=== PATIENT | male | born 1955 | race Caucasian/White ===

== ENCOUNTER 2023-02-09 13:40 | Inpatient (IN) | payer MEDICARE, OTHER ==
[~2023-02-09] VITALS: Ht 193 cm; Wt 70.3 kg
--- NOTE | 2023-02-09 13:45 | NUR ---
PILY DE SANTIAGO FROM [facility] FOR HAVING BLOOD IN URINE, pain 10/10 during urination, on and off. has been seeing his pmd with medication taken
--- NOTE | 2023-02-09 14:00 | NUR ---
constance collected sent to lab
--- NOTE | 2023-02-09 14:05 | NUR ---
kemal collected, sent to lab
--- NOTE | 2023-02-09 14:09 | NUR ---
dr miller at bedside for eval
[2023-02-09 14:19] LABS: BASOPHILS % (AUTO) 0.7 % (0.0-2.0); EOSINOPHILS % (AUTO) 1.3 % (0.0-6.0); HEMATOCRIT 48 % (39-51); HEMOGLOBIN 15.9 g/dL (13.5-17.5); LYMPHOCYTES # (AUTO) 1.2 K/uL (0.8-4.8); LYMPHOCYTES % (AUTO) 17.3 % (20.0-44.0); MEAN CORPUSCULAR HGB CONC 33 g/dl (31.0-36.0); MEAN CORPUSCULAR VOLUME 87 fL (80-96); MONOCYTES # (AUTO) 0.7 K/uL (0.1-1.30); MONOCYTES % (AUTO) 10.6 % (2.0-12.0); NEUTROPHILS # (AUTO) 4.6 K/uL (1.8-8.9); NEUTROPHILS % (AUTO) 70.1 % (43.0-81.0); PLATELET COUNT (AUTO) 180 K/uL (150-450); RED BLOOD CELL COUNT(AUTO) 5.58 MIL/uL (4.5-6.0); WHITE BLOOD COUNT (AUTO) 6.6 K/uL (4.3-11.0)
[2023-02-09 14:31] LABS: CALCIUM, SERUM 9.2 mg/dL (8.5-10.1); CREATININE 0.8 mg/dL (0.6-1.3); POTASSIUM 4.4 mmol/L (3.5-5.1)
[2023-02-09 14:38] LABS: ALBUMIN 3.6 g/dL (3.4-5.0); BILIRUBIN,DIRECT 0.1 mg/dL (0.0-0.2); BILIRUBIN,TOTAL 0.5 mg/dL (0.2-1.0); TOTAL PROTEIN, SERUM 7.1 g/dL (6.4-8.2)
--- NOTE | 2023-02-09 14:57 | NUR ---
MOHINI JETER (BROTHER)
[2023-02-09 15:50] LABS: BILIRUBIN,URINE NEGATIVE (NEGATIVE); COLOR,URINE YELLOW (YELLOW); LEUKOCYTE ESTERASE ,URINE NEGATIVE (NEGATIVE); NITRITE, URINE NEGATIVE (NEGATIVE); PROTEIN,URINE NEGATIVE (NEGATIVE); UGLUCOSE 3+ mg/dL (NEGATIVE); UROBILINOGEN,URINE 0.2 EU/dL (0.2)
[2023-02-09 16:30] LABS: RBC,URINE 51-80 /HPF (0-2)
[2023-02-09] MEDS ORDERED: Z GUARD REMEDY 4 OZ OINT TP PRN (16:30)
[2023-02-09] MEDS ORDERED: ACETAMINOPHEN 325 MG TABLET PO PRN (16:30)
[2023-02-09] MEDS ORDERED: MAG HYDROX/AL HYDROX/SIMETH 30 ML UDC PO PRN (16:30)
[2023-02-09] MEDS ORDERED: ONDANSETRON HCL/PF 4 MG/2 ML VIAL IVP PRN (16:30)
[2023-02-09] MEDS ORDERED: CIPROFLOXACIN IV RTU 400 MG in PREMIX 1 EA IV SCH (16:30)
[2023-02-09] MEDS ORDERED: HYDROCODONE/APAP 5/325MG TABLET PO PRN (16:30)
[2023-02-09 16:31] LABS: BACTERIA,URINE None seen /HPF (None Seen); SQUAMOUS EPITHELIAL CELL,UR 0-2 /HPF (None Seen); WBC,URINE 0-2 /HPF (0-3); YEAST,URINE Few /HPF (None Seen)
--- NOTE | 2023-02-09 16:41 | NUR ---
BED GIVEN 307-1
--- NOTE | 2023-02-09 17:11 | NUR ---
report given to loli olivares for [facility] bed 307-1
--- NOTE | 2023-02-09 17:18 | NUR ---
PT TRANSFERRED TO [facility] SUR[facility] FLOOR IN STABLE CONDITION.
[2023-02-09] MEDS ORDERED: HYDR-500 PO (17:24)
[2023-02-09] MEDS ORDERED: SITA100T PO (17:24)
[2023-02-09] MEDS ORDERED: MULT-213 PO (17:24)
[2023-02-09] MEDS ORDERED: BRIM5DRO5 EACHEYE (17:24)
[2023-02-09] MEDS ORDERED: ACET-868 PO (17:24)
[2023-02-09] MEDS ORDERED: LEVO500T90 PO (17:24)
[2023-02-09] MEDS ORDERED: ATOR10TA PO (17:24)
[2023-02-09] MEDS ORDERED: TAMS-12 PO (17:24)
[2023-02-09] MEDS ORDERED: BLOO-668 IN (17:24)
[2023-02-09] MEDS ORDERED: GLIP5TAB26 PO (17:24)
[2023-02-09] MEDS ORDERED: EMPA25TA PO (17:24)
[2023-02-09] MEDS ORDERED: METF-440 PO (17:24)
[2023-02-09] MEDS ORDERED: INSU100I30 SQ (17:24)
[2023-02-09] MEDS: IV 1/2NS 1000 ML 1,000 ML IV PRN (19:11)
--- NOTE | 2023-02-09 19:27 | NUR ---
RN NOTE; RECEIVED PT IN BED AAOX4 ABLE TO MAKE NEEDS KNOWN,ON RM AIR POLINA WELL SAT 98% NO SOB/DISTRESS NOTED,NO COMPLAIN OF PAIN/DISCOMFORT AT THIS TIME,IV ACCESS ON LAC 20G WITH NS 125ML/HR INFUSING WELL,SAFETY MEASURE IN PLACE,CALL LIGHT WITHIN REACH,WILL CONTINUE TO MONITOR.
[2023-02-09 20:00] VITALS: BP 95/60; TEMP 97.7; O2SAT 99
--- NOTE | 2023-02-09 21:44 | NUR ---
RN NOTE; PATIENT SAID,HE SUPPOSE TO TAKE METFORMIN 1000MG BEFORE BEDTIME,RELAY PT COMPLAINED TO MOIS[facility]S MEAD BERJ.NO METFORMIN IN THE HOSPITAL,IT INTERFERES WITH OTHER INTERVENTION,ONLY SLIDING SCALE.ACHS ACCUCHECKS MILD SLIDING SCALE. CARRIED OUT.
[2023-02-09] MEDS ORDERED: DEXTROSE 50%-WATER 50 ML DISP.SYRIN IV PRN (22:00)
[2023-02-09] MEDS: INSULIN REGULAR, HUMAN 100 UNIT/ML 3 ML VIAL SQ PRN (22:18)
[2023-02-09] MEDS: BLOOD SUGAR DIAGNOSTIC 1 EACH STRIP IN SCH (22:24)
[2023-02-09] MEDS: LEVOFLOXACIN 500 MG /D5W 100ML 500 MG in PREMIX 1 EA IV SCH (22:25)
[2023-02-10] VITALS (7 sets, daily range): BP systolic 83–97; BP diastolic 57–64; TEMP 97.6–98.6; O2SAT 97–98
[2023-02-10] MEDS: IV 1/2NS 1000 ML 1,000 ML IV PRN ×3 (05:12→23:08)
[2023-02-10 05:49] LABS: BASOPHILS % (AUTO) 0.7 % (0.0-2.0); EOSINOPHILS % (AUTO) 1.6 % (0.0-6.0); HEMATOCRIT 46 % (39-51); LYMPHOCYTES # (AUTO) 1.3 K/uL (0.8-4.8); LYMPHOCYTES % (AUTO) 19.8 % (20.0-44.0); MEAN CORPUSCULAR HGB CONC 33 g/dl (31.0-36.0); MEAN CORPUSCULAR VOLUME 86 fL (80-96); MONOCYTES # (AUTO) 0.8 K/uL (0.1-1.30); MONOCYTES % (AUTO) 12.3 % (2.0-12.0); NEUTROPHILS # (AUTO) 4.4 K/uL (1.8-8.9); NEUTROPHILS % (AUTO) 65.6 % (43.0-81.0); PLATELET COUNT (AUTO) 173 K/uL (150-450); RED BLOOD CELL COUNT(AUTO) 5.31 MIL/uL (4.5-6.0); WHITE BLOOD COUNT (AUTO) 6.7 K/uL (4.3-11.0)
[2023-02-10 06:10] LABS: ALBUMIN 3.2 g/dL (3.4-5.0); BILIRUBIN,TOTAL 0.6 mg/dL (0.2-1.0); CALCIUM, SERUM 8.8 mg/dL (8.5-10.1); CREATININE 0.8 mg/dL (0.6-1.3); MAGNESIUM 2.1 mg/dL (1.8-2.4); PHOSPHORUS 3.7 mg/dL (2.5-4.9); TOTAL PROTEIN, SERUM 6.4 g/dL (6.4-8.2)
[2023-02-10] MEDS: BLOOD SUGAR DIAGNOSTIC 1 EACH STRIP IN SCH ×4 (06:22→21:13)
--- NOTE | 2023-02-10 06:23 | NUR ---
RN CLOSING NOTE; PATIENT IN BED AAOX3 ABLE TO MAKE NEEDS KNOWN,ON RM AIR POLINA WELL SAT 99% NO SOB/DISTRESS NOTED,NO COMPLAIN OF PAIN/DISCOMFORT DURING SHIFT,IV ACCESS ON LAC 20G WITH 0.45 NS 125ML/HR INFUSING WELL,DUE MEDS GIVEN ORDER,ALL NEEDS ATTENDED,FC INTACT DRAINING OSCAR URINE,NO ODOR NOTED,URINE OUTPUT 1200ML,SAFETY MEASURE IN PLACE,CALL LIGHT WITHIN REACH,WILL ENDORSED TO NEXT SHIFT.
--- NOTE | 2023-02-10 08:10 | NUR ---
RN OPENING NOTES 307-1 RECEIVED PATIENT RESTFUL IN BED,BREATHING WELL ON ROOM AIR,EVENLY AND UNLABORED. NO SIGNS OF DISCOMFORT/PAIN NOTED NOR VERBILISED.PATIENT IS A&O x4 ,HE IS ALSO ABLE TO MAKE NEEDS KNOWN TO STAFF. PATIENT HAS AN IV ACCESS LFA 20G INTACT,PATENT AND CLEAN;SOLO OF 0.45 NS IN GOOD PROGRESS. HAS A GUTHRIE INSITU AND DRAINING WELL(300ML OUTPUT).SKIN IS INTACT. FALL AND SAFETY MEASURES IN PLACE,BED IN A LOWER POSITION AND LOCKED,CALL LIGHT AND TABLE WITHIN REACH. NO ISSUES RAISED,LEFT COMFARTABLE IN BED.CONTINUES TO MONITOR PATIENT THROUGH OUT SHIFT &HOURLY ROUNDING/PRN
[2023-02-10] MEDS: DOCUSATE SODIUM 100 MG CAPSULE PO SCH ×3 (08:34→16:38)
[2023-02-10] MEDS: INSULIN REGULAR, HUMAN 100 UNIT/ML 3 ML VIAL SQ PRN ×3 (12:19→21:19)
[2023-02-10] MEDS ORDERED: ACETAMINOPHEN 325 MG TABLET PO PRN (17:00)
[2023-02-10] MEDS ORDERED: BLOOD SUGAR DIAGNOSTIC 1 EACH STRIP IN SCH (17:00)
[2023-02-10] MEDS ORDERED: hydrOXYzine PAMOATE 25 MG CAPSULE PO PRN (17:00)
[2023-02-10] MEDS: GLUCERNA SHAKE 237 ML CAN PO SCH (17:00)
[2023-02-10] MEDS: LEVOFLOXACIN 500 MG /D5W 100ML 500 MG in PREMIX 1 EA IV SCH (18:17)
[2023-02-10] MEDS: METFORMIN 500 MG TABLET PO SCH (18:24)
--- NOTE | 2023-02-10 18:30 | NUR ---
RN CLOSING NOTES 3 PATIENT RESTFUL IN BED,BREATHING WELL ON ROOM AIR,EVENLY AND UNLABORED. NO SIGNS OF DISCOMFORT/PAIN NOTED NOR VERBILISED.PATIENT IS A&O x4 ,. PATIENT HAS AN IV ACCESS LFA 20G INTACT,PATENT AND CLEAN;SOLO OF 0.45 NS IN GOOD PROGRESS,LEVO IV ANTIBIOTIC RUNNING TOO. HAS A GUTHRIE INSITU AND DRAINING WELL(500ML OUTPUT).SKIN IS INTACT. FALL AND SAFETY MEASURES IN PLACE,BED IN A LOWER POSITION AND LOCKED,CALL LIGHT AND TABLE WITHIN REACH. NO ISSUES RAISED,LEFT COMFARTABLE IN BED.WILL ENDORSE TO THE WELL POINT PUMPING SUPERVISOR NURSE
[2023-02-10] MEDS: BRIMONIDINE TARTRATE OPHT SOLN 5 ML BOTTLE EACHEYE SCH (21:07)
[2023-02-10] MEDS: INSULIN GLARGINE, 100 UNIT/ML CARTRIDGE SQ SCH (21:22)
[2023-02-10] MEDS: TAMSULOSIN 0.4 MG CAP.SR.24H PO SCH (22:00)
[2023-02-10] MEDS ORDERED: INSULIN GLARGINE,BASAGLAR 100 UNIT/ML INSULN.PEN SQ SCH (22:00)
[2023-02-10] MEDS: ATORVASTATIN 10 MG TABLET PO SCH (23:08)
--- NOTE | 2023-02-11 05:23 | NUR ---
CLOSING NOTES: ALERT AND ORIENTATED X4 TALKS ALOT!! TALKS ABOUT "HOW HE ALMOST " / ABOUT HIS MANY ILLNESSESS / ABOUT WERE HE LIVES AND HOW THEY HAD TO CHANGE HIS ROOM 3 TIMES BECAUSE HE DIDN'T LIKE HIS ROOMMATES. HE DRINKS COPIOUS AMOUNTS H20 THIS 12 HOURS 2500 ML / OUTPUT VIA THE GUTHRIE 4800ML VISTARIL GIVEN FOR HIS C/O ITCHING ON HIS BACK AND EFFECTIVE PATIENT DOES SEEK ATTENTION... WHEN GIVING ATTENTION TO THE PATIENT 2ND BED MR JETER WILL ASK FOR ME TO CHECK HIS GUTHRIE BAG / BRING HIM MORE WATER /OR WILL START TALKING ABOUT HIS ILLNESSESS.
[2023-02-11] MEDS: IV 1/2NS 1000 ML 1,000 ML IV PRN ×3 (05:46→23:43)
[2023-02-11] MEDS: BLOOD SUGAR DIAGNOSTIC 1 EACH STRIP IN SCH ×4 (06:01→22:08)
--- NOTE | 2023-02-11 07:56 | NUR ---
RN OPENING NOTES RECEIVED PATIENT RESTFUL IN BED,BREATHING WELL ON ROOM AIR,EVENLY AND UNLABORED. NO SIGNS OF DISCOMFORT/PAIN NOTED NOR VERBALIZED.PATIENT IS A&O x4 ,HE IS ALSO ABLE TO MAKE NEEDS KNOWN TO STAFF. PATIENT HAS AN IV ACCESS LFA 20G INTACT,PATENT AND CLEAN;SOLO OF 0.45 NS IN GOOD PROGRESS. HAS A GUTHRIE INSITU AND DRAINING WELL(300ML OUTPUT).SKIN IS INTACT. FALL AND SAFETY MEASURES IN PLACE,BED IN A LOWER POSITION AND LOCKED,CALL LIGHT AND TABLE WITHIN REACH. NO ISSUES RAISED,LEFT COMFORTABLE IN BED.CONTINUES TO MONITOR PATIENT THROUGH OUT SHIFT &HOURLY ROUNDING/PRN
[2023-02-11] MEDS: GLUCERNA SHAKE 237 ML CAN PO SCH ×3 (08:25→17:38)
[2023-02-11] MEDS: DOCUSATE SODIUM 100 MG CAPSULE PO SCH ×2 (08:25→17:37)
[2023-02-11] MEDS: METFORMIN 500 MG TABLET PO SCH ×2 (08:25→17:37)
[2023-02-11] MEDS: glipiZIDE XL 2.5 MG TAB.OSM.24 PO SCH (08:25)
[2023-02-11] MEDS: MULTIVIT W/MINERALS 1 TAB TABLET PO SCH (08:25)
[2023-02-11 08:30] VITALS: BP 96/71; TEMP 97.4; O2SAT 97
[2023-02-11] MEDS ORDERED: LEVOFLOXACIN (500MG) 500 MG TABLET PO SCH (09:00)
[2023-02-11] MEDS ORDERED: EMPAGLIFLOZIN 25 MG TABLET PO SCH ×2 (09:00)
[2023-02-11] MEDS ORDERED: Medication Not On Formulary EA (Sitagliptin Phosphate (Januvia) 100 MG) PO SCH (09:00)
[2023-02-11] MEDS: INSULIN REGULAR, HUMAN 100 UNIT/ML 3 ML VIAL SQ PRN ×3 (12:20→21:50)
[2023-02-11 16:00] VITALS: BP 100/62; TEMP 97.4; O2SAT 97
[2023-02-11] MEDS ORDERED: LEVOFLOXACIN (250MG) 250 MG TABLET PO SCH (18:00)
--- NOTE | 2023-02-11 18:25 | NUR ---
MS RN CLOSING NOTES PATIENT RESTFUL IN BED,BREATHING WELL ON ROOM AIR,EVENLY AND UNLABORED. NO SIGNS OF DISCOMFORT/PAIN NOTED NOR VERBILISED.PATIENT IS A&O x4 , PATIENT HAS AN IV ACCESS LFA 20G INTACT,PATENT AND CLEAN;SOLO OF 0.45 NS IN GOOD PROGRESS. HAS A GUTHRIE INSITU AND DRAINING WELL.SKIN IS INTACT. FALL AND SAFETY MEASURES IN PLACE,BED IN A LOWER POSITION AND LOCKED,CALL LIGHT AND TABLE WITHIN REACH. NO ISSUES RAISED,LEFT COMFARTABLE IN BED.WILL ENDORSE TO THE ADMINISTRATIVE PROFESSIONAL NURSE
[2023-02-11 20:00] VITALS: BP 89/54; TEMP 98.2; O2SAT 97
[2023-02-11] MEDS: ATORVASTATIN 10 MG TABLET PO SCH (21:27)
[2023-02-11] MEDS: TAMSULOSIN 0.4 MG CAP.SR.24H PO SCH (21:27)
[2023-02-11] MEDS: BRIMONIDINE TARTRATE OPHT SOLN 5 ML BOTTLE EACHEYE SCH (21:37)
[2023-02-11] MEDS: INSULIN GLARGINE, 100 UNIT/ML CARTRIDGE SQ SCH (21:44)
--- NOTE | 2023-02-11 23:06 | NUR ---
MS MCCALL OPENING NOTES RECEIVED PT IN BED, AWAKE, A/O X4, ABLE TO MAKE NEEDS KNOWN. PT ON ROOM AIR, TOLERATING WELL, DENIES SOB OR AT THIS TIME. IV ACCESS ON LFA 20G, PATENT, INTACT AND INFUSING WELL WITH 0.45 NS AT 125ML/HR. PT WITH FC, DRAINING WELL. PT DENIES PAIN OR ANY DISCOMFORT AT THIS TIME. SAFETY PRECAUTIONS IN PLACED: BED AT LOWEST AND LOCKED POSITION, SIDE RAILS UP X3, CALL LIGHT AND TABLE WITHIN EASY REACH. WILL CONTINUE TO MONITOR PT. Addendum: 02/12/23 at 0323 by ABDULAZIZ MCLEAN RN TIME 1929
--- NOTE | 2023-02-12 04:55 | NUR ---
MS RN NOTE PT COMPLAINS OF 3/10 PAIN/DISCOMFORT AT LEFT ARM. REQUESTED FOR TYELENOL. PRN 650MG TYELENOL GIVEN, PLEASE SEE EMAR. WILL CONTINUE TO MONITOR PT.
[2023-02-12 05:50] LABS: BASOPHILS % (AUTO) 0.8 % (0.0-2.0); EOSINOPHILS % (AUTO) 2.6 % (0.0-6.0); HEMATOCRIT 43 % (39-51); HEMOGLOBIN 14.3 g/dL (13.5-17.5); LYMPHOCYTES # (AUTO) 1.4 K/uL (0.8-4.8); LYMPHOCYTES % (AUTO) 24.7 % (20.0-44.0); MEAN CORPUSCULAR HGB CONC 33 g/dl (31.0-36.0); MEAN CORPUSCULAR VOLUME 85 fL (80-96); MONOCYTES # (AUTO) 0.6 K/uL (0.1-1.30); MONOCYTES % (AUTO) 9.8 % (2.0-12.0); NEUTROPHILS # (AUTO) 3.6 K/uL (1.8-8.9); NEUTROPHILS % (AUTO) 62.1 % (43.0-81.0); PLATELET COUNT (AUTO) 158 K/uL (150-450); RED BLOOD CELL COUNT(AUTO) 5.03 MIL/uL (4.5-6.0); WHITE BLOOD COUNT (AUTO) 5.9 K/uL (4.3-11.0)
[2023-02-12 06:24] LABS: BILIRUBIN,TOTAL 0.6 mg/dL (0.2-1.0); CALCIUM, SERUM 8.6 mg/dL (8.5-10.1); CREATININE 0.7 mg/dL (0.6-1.3); MAGNESIUM 1.9 mg/dL (1.8-2.4); PHOSPHORUS 3.5 mg/dL (2.5-4.9); POTASSIUM 3.8 mmol/L (3.5-5.1)
[2023-02-12] MEDS: INSULIN REGULAR, HUMAN 100 UNIT/ML 3 ML VIAL SQ PRN (06:45)
[2023-02-12] MEDS: BLOOD SUGAR DIAGNOSTIC 1 EACH STRIP IN SCH ×3 (06:45→17:06)
--- NOTE | 2023-02-12 06:46 | NUR ---
MS RN CLOSING NOTES PT IN BED, ASLEEP, EASILY AROUSABLE BY NAME, A/O X4, ABLE TO MAKE NEEDS KNOWN. PT ON ROOM AIR, TOLERATING WELL, DENIES SOB OR AT THIS TIME. IV ACCESS ON LFA 20G, PATENT, INTACT AND INFUSING WELL WITH 0.45 NS AT 125ML/HR. PT WITH FC, DRAINED 2350ML THIS SHIFT. PT IS AMBULATORY BUT NEEDS ASSISTANCE TO BR FOR BM. PT DENIES PAIN OR ANY DISCOMFORT AT THIS TIME. ALL DUE MEDS GIVEN, ALL NEEDS ATTENDED. SAFETY PRECAUTIONS IN PLACED: BED AT LOWEST AND LOCKED POSITION, SIDE RAILS UP X3, CALL LIGHT AND TABLE WITHIN EASY REACH. WILL ENDORSE PT TO NEXT SHIFT NURSE FOR CHRIS.
--- NOTE | 2023-02-12 07:15 | NUR ---
MS RN OPENING NOTES RECEIVED PT IN BED, AWAKE, A/O X4, ABLE TO MAKE NEEDS KNOWN. PT ON ROOM AIR, TOLERATING WELL, DENIES SOB OR AT THIS TIME. IV ACCESS ON LFA 20G, PATENT, INTACT AND INFUSING WELL WITH 0.45 NS AT 125ML/HR. PT WITH FC, DRAINING WELL. PT DENIES PAIN OR ANY DISCOMFORT AT THIS TIME. SAFETY PRECAUTIONS IN PLACED: BED AT LOWEST AND LOCKED POSITION, SIDE RAILS UP X3, CALL LIGHT AND TABLE WITHIN EASY REACH. WILL CONTINUE TO MONITOR PT.
[2023-02-12] MEDS: glipiZIDE XL 2.5 MG TAB.OSM.24 PO SCH (09:00)
[2023-02-12] MEDS: GLUCERNA SHAKE 237 ML CAN PO SCH ×3 (09:03→17:07)
[2023-02-12] MEDS: DOCUSATE SODIUM 100 MG CAPSULE PO SCH ×2 (09:04→17:09)
[2023-02-12] MEDS: IV 1/2NS 1000 ML 1,000 ML IV PRN (09:04)
[2023-02-12] MEDS: METFORMIN 500 MG TABLET PO SCH ×2 (09:04→17:09)
[2023-02-12] MEDS: MULTIVIT W/MINERALS 1 TAB TABLET PO SCH (09:04)
--- NOTE | 2023-02-12 11:20 | NUR ---
MS RN NOTE GUTHRIE CATHETER WAS REMOVED ORDERED. WILL MONITOR FOR URINARY RETENTION.
[2023-02-12] MEDS ORDERED: LEVO250T59 PO (11:24)
--- NOTE | 2023-02-12 12:45 | NUR ---
MS RN NOTE PATIENT ABLE TO VOID USING URINAL. CHARGE NURSE KEI WAS INFORMED AND ONLINE AFFILIATE MARKETING MANAGER.
[2023-02-12] MEDS ORDERED: NITR100C6 PO (14:03)
[2023-02-12 16:06] VITALS: BP 90/60; TEMP 98.8; O2SAT 98
--- NOTE | 2023-02-12 17:25 | NUR ---
MS MANAGER DAIRY NOTES RECEIVED ORDER FOR DISCHARGE. PATIENT IS A/O X 4, ABLE TO MAKE NEEDS KNOWN. STABLE ON ROOM AIR. NO SOB OR S/S OF DISTRESS NOTED. DISCHARGE INSTRUCTIONS GIVEN TO PATIENT, VERBALIZED UNDERSTANDING. ALL BELONGINGS ACCOUNTED FOR, BELONGING SHEET SIGNED. PATIENT DENIES ANY PAIN OR DISCOMFORT AT THIS TIME. IV ACCESS REMOVED, CATHETER TIP INTACT. PRESSURE DRESSING APPLIED. EXITCARE FOLDER GIVEN TO EMT'S. REPORT GIVEN TO [facility] C/O STEFANY CISNEROS. PATIENT LEFT IN STABLE CONDITION VIA [facility] WITH JENNA WALKER EMT'S.
== END 2023-02-12 17:30 | DRG 689 ==
LOC: ER 13:57 → TELE 16:54 → MED 02-10 02:02
PROVIDERS: ADMIT Internal Medicine; ATTEND Nurse Practitioner Acute Care
DX: N30.91 Cystitis, unspecified with hematuria (principal); K85.90 Acute pancreatitis without necrosis or infection, unspecified; E44.0 Moderate protein-calorie malnutrition; R64 Cachexia; Z68.1 Body mass index [BMI] 19.9 or less, adult; E03.9 Hypothyroidism, unspecified; E11.9 Type 2 diabetes mellitus without complications; F32.A Depression, unspecified; I10 Essential (primary) hypertension; Z88.0 Allergy status to penicillin; Z88.2 Allergy status to sulfonamides; N40.1 Benign prostatic hyperplasia with lower urinary tract symptoms; Z79.4 Long term (current) use of insulin; Z79.84 Long term (current) use of oral hypoglycemic drugs; B96.20 Unspecified Escherichia coli [E. coli] as the cause of diseases classified elsewhere
CPT/HCPCS: 36415; 80048-TC; 80053-TC; 80076-TC; 81001; 82962-TC; 83690-TC; 83735-TC; 84100-TC; 85025-TC; 87086-TC; 97116-TC; 97530-TC; A4216; G0378; J0744; J1815; J1956; J3490; Q0177

== ENCOUNTER 2023-02-15 12:00 | Emergency (ER) | payer MEDICARE, OTHER ==
[~2023-02-15] VITALS: Ht 193 cm; Wt 68.0 kg
[~2023-02-15 12:00] MED LIST: ACET-868 PO; ATOR10TA PO; BLOO-668 IN; BRIM5DRO5 EACHEYE; EMPA25TA PO; GLIP5TAB26 PO; HYDR-500 PO; INSU100I30 SQ; LEVO500T90 PO; METF-440 PO; MULT-213 PO; NITR100C6 PO; TAMS-12 PO
--- NOTE | 2023-02-15 12:11 | NUR ---
PATIENT CAME TO EMERGENCY DEPARTMENT WITH COMPLAINTS OF SUPRA PUBIC PAIN.ALERT AND ORIENTED.ON ROOM AIR.PATIENT ATTACHED TO TUBE COREMAKER AND PULSE OXYMETER.CHANGED TO HOSPITAL GOWN AND SAFTY PRECAUTIONS ARE IN PLACE.AWAITING FOR MD FOR EVALUATION.
--- NOTE | 2023-02-15 12:12 | NUR ---
DR LOCKETT AT BED SIDE
--- NOTE | 2023-02-15 13:00 | NUR ---
iv inserted on lt forearm no 20,blood collected and send to lab
--- NOTE | 2023-02-15 13:05 | NUR ---
patient went to radiology
--- NOTE | 2023-02-15 13:06 | NUR ---
urine collected and send to lab
[2023-02-15 13:17] LABS: BASOPHILS # (AUTO) 0.1 K/uL (0.0-0.2); BASOPHILS % (AUTO) 0.8 % (0.0-2.0); EOSINOPHILS % (AUTO) 3.3 % (0.0-6.0); HEMATOCRIT 46 % (39-51); HEMOGLOBIN 15.4 g/dL (13.5-17.5); LYMPHOCYTES # (AUTO) 0.8 K/uL (0.8-4.8); LYMPHOCYTES % (AUTO) 10.1 % (20.0-44.0); MEAN CORPUSCULAR HGB CONC 34 g/dl (31.0-36.0); MEAN CORPUSCULAR VOLUME 85 fL (80-96); MONOCYTES # (AUTO) 0.8 K/uL (0.1-1.30); MONOCYTES % (AUTO) 9.7 % (2.0-12.0); NEUTROPHILS # (AUTO) 6.3 K/uL (1.8-8.9); NEUTROPHILS % (AUTO) 76.1 % (43.0-81.0); PLATELET COUNT (AUTO) 187 K/uL (150-450); RED BLOOD CELL COUNT(AUTO) 5.42 MIL/uL (4.5-6.0); WHITE BLOOD COUNT (AUTO) 8.3 K/uL (4.3-11.0)
[2023-02-15 13:18] LABS: BILIRUBIN,URINE NEGATIVE (NEGATIVE); COLOR,URINE YELLOW (YELLOW); LEUKOCYTE ESTERASE ,URINE NEGATIVE (NEGATIVE); NITRITE, URINE NEGATIVE (NEGATIVE); PH,URINE 6.5 (5.0-8.0); PROTEIN,URINE NEGATIVE (NEGATIVE); UGLUCOSE 3+ mg/dL (NEGATIVE); UROBILINOGEN,URINE 0.2 EU/dL (0.2)
[2023-02-15 13:27] LABS: CALCIUM, SERUM 9.4 mg/dL (8.5-10.1); CREATININE 0.7 mg/dL (0.6-1.3)
[2023-02-15 13:29] LABS: BACTERIA,URINE None seen /HPF (None Seen); SQUAMOUS EPITHELIAL CELL,UR Rare /HPF (None Seen); WBC,URINE 0-2 /HPF (0-3)
[2023-02-15 13:38] LABS: ALBUMIN 3.6 g/dL (3.4-5.0); BILIRUBIN,DIRECT 0.1 mg/dL (0.0-0.2); BILIRUBIN,TOTAL 0.6 mg/dL (0.2-1.0); TOTAL PROTEIN, SERUM 7.2 g/dL (6.4-8.2)
--- NOTE | 2023-02-15 18:10 | NUR ---
ASKED TO PATIENT WHETER HE NEED PAIN MEDICATION ,PATIENT REFUSED PAIN MEDICATION .
--- NOTE | 2023-02-15 19:22 | NUR ---
BED REPORT GIVEN TO SUMEET FOR CHRIS
--- NOTE | 2023-02-15 20:25 | NUR ---
[facility] ETA: 30 MIN
--- NOTE | 2023-02-15 20:48 | NUR ---
REPORT GIVEN TO JING AT [facility].
[2023-02-15] MEDS ORDERED: MORPHINE SULFATE INJ 2 MG/ML DISP.SYRIN ONE (20:50)
--- NOTE | 2023-02-15 20:59 | NUR ---
PT TRANSFERED BACK TO [facility] WITH [facility] TRANSPORT TEAM.
[2023-02-15] MEDS ORDERED: MORPHINE SULFATE INJ 2 MG/ML DISP.SYRIN IV ONE (21:00)
[2023-02-15] MEDS ORDERED: ACETAMINOPHEN ES 500 MG TABLET PO ONE (21:00)
[2023-02-15 21:18] VITALS: BP 98/76; TEMP 98.6; O2SAT 98
== END 2023-02-15 21:20 | disposition home health service (06) ==
LOC: ER 12:04
DX: R10.84 Generalized abdominal pain (principal); I10 Essential (primary) hypertension; E11.9 Type 2 diabetes mellitus without complications; E03.9 Hypothyroidism, unspecified; Z88.0 Allergy status to penicillin; Z88.2 Allergy status to sulfonamides; Z88.8 Allergy status to other drugs, medicaments and biological substances; Z79.899 Other long term (current) drug therapy
CPT/HCPCS: 99285; 74176; 96374; 85025; 80048; 87086; 83690; 80076; 81001; 36415; J2270